=== PATIENT | female | born 1970 | race Caucasian/White ===

== ENCOUNTER 2018-12-07 09:41 | Emergency (ER) | payer SELFPAY ==
[~2018-12-07] VITALS: Ht 157.5 cm; Wt 59.1 kg
[~2018-12-07 09:41] MED LIST: FLEXERIL5 MG PO; LORTAB 5/500 501 TAB PO; NO HOME MEDICATIONS; PHENERGAN W/CO120 ML PO; ULTRAM 50MG TAB50 MG PO; ZITHROMAX Z PA250 MG PO
[2018-12-07 10:02] LABS: COLLECTION METHOD CLEAN CATCH
[2018-12-07 10:08] LABS: PH 8 (5-8); SQUAMOUS EPITHELIAL 0-2 /hpf; URINE APPEARANCE Clear; URINE BACTERIA Rare /hpf; URINE BILIRUBIN Negative (NEGATIVE); URINE BLOOD Negative (NEGATIVE); URINE COLOR Yellow; URINE GLUCOSE Negative (NEGATIVE); URINE KETONE Trace (NEGATIVE); URINE LEUKOCYTE ESTERASE Negative (NEGATIVE); URINE NITRATE Negative (NEGATIVE); URINE PROTEIN(semi-quant) Negative (NEGATIVE); URINE RBC 0-2 /hpf; URINE UROBILINOGEN Negative (NEGATIVE)
[2018-12-07 10:38] LABS: BASO % 0.7 % (0.0-2.0); EOS % 0.3 % (0-4.0); GRAN # 3.6 (1.4-6.5); GRAN % 63.2 % (42.2-75.2); HEMATOCRIT 44.8 % (37.0-47.0); HEMOGLOBIN 15.8 g/dl (12.5-16.0); LYMPH # 1.4 (1.2-3.4); MEAN CELL VOLUME 91 fl (80.0-100.0); MEAN CORPUSCULAR HEMOGLOBIN 32 pg (27.0-31.0); MEAN CORPUSCULAR HGB CONC 35 g/dl (33.0-37.0); MEAN PLATELET VOLUME 8.4 fl (7.4-10.4); MONO # 0.6 (0.1-0.6); MONO % 10.5 % (1.7-9.3); PLATELET COUNT 304 K/mm3 (130-400); REDCELL DISTRIBUTION WIDTH-CV 12.2 % (11.5-14.5)
[2018-12-07 10:53] LABS: ALANINE AMINOTRANSFERASE 21 U/L (9-52); ALBUMIN 4.8 gm/dL (3.5-5.0); ALKALINE PHOSPHATASE 85 U/L (50-136); ANION GAP 11 mmol/L (7-16); AST,SGOT 37 U/L (15-37); BLOOD UREA NITROGEN 6 mg/dL (7-17); CALCIUM 9.5 mg/dL (8.4-10.2); CARBON DIOXIDE 26 mmol/L (22-30); CHLORIDE 93 mmol/L (98-107); CREATININE, serum 0.46 (0.52-1.25); GLUCOSE 104 mg/dL (74-106); POTASSIUM 4.9 mmol/L (3.4-5.0); SODIUM 130 mmol/L (137-145); TOTAL PROTEIN 7.9 gm/dL (6.4-8.2)
[2018-12-07 10:54] LABS: C-REACTIVE PROTEIN < 0.5 mg/dL (0.0-0.9)
[2018-12-07] MEDS ORDERED: ZOLOFT 50MG50 MG PO (11:26)
[2018-12-07] MEDS ORDERED: AMOXICILLIN875 MG PO (11:27)
[2018-12-07] MEDS ORDERED: ATIVAN 1MG T1 MG/TAB PO (11:27)
[2018-12-07 12:30] VITALS: BP 140/75; PULSE 71; TEMP 98.5
== END 2018-12-07 12:30 | disposition home or self-care (01) ==
LOC: COL.ER 09:41
PROVIDERS: Physician Assistant
DX: F41.1 Generalized anxiety disorder (principal); J32.9 Chronic sinusitis, unspecified; I10 Essential (primary) hypertension; F17.210 Nicotine dependence, cigarettes, uncomplicated; Z98.51 Tubal ligation status
CPT/HCPCS: J2060; J2405; J7030

== ENCOUNTER 2019-01-07 12:24 | Emergency (ER) | payer SELFPAY ==
[~2019-01-07] VITALS: Ht 157.5 cm; Wt 56.8 kg
[~2019-01-07 12:24] MED LIST changes: +AMOXICILLIN875 MG PO; +ATIVAN 1MG T1 MG/TAB PO; +ZOLOFT 50MG50 MG PO
[2019-01-07 12:49] VITALS: TEMP 97
[2019-01-07 16:10] VITALS: BP 121/78; PULSE 81
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
== END 2019-01-07 16:12 | disposition home or self-care (01) ==
LOC: COL.ER 12:24
DX: M54.6 Pain in thoracic spine (principal); F10.129 Alcohol abuse with intoxication, unspecified; F41.9 Anxiety disorder, unspecified; Z98.51 Tubal ligation status; F17.210 Nicotine dependence, cigarettes, uncomplicated; Y04.8XXA Assault by other bodily force, initial encounter; Y90.8 Blood alcohol level of 240 mg/100 ml or more